=== PATIENT | female | born 2000 | race Caucasian/White ===

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

== ENCOUNTER 2020-07-18 08:59 | Emergency (ER) | payer MEDICAID, SELFPAY ==
[2020-07-18 09:00] VITALS: BP 152/82; PULSE 109; RESP 16; TEMP 35.7; O2SAT 99; BMI 33.3
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
--- NOTE | 2020-07-18 09:20 | DCINST.ED_ITS ---
ED Disposition - Plan for ED Patient: Instructions: ED Neck Pain Prescriptions: cycloBENZAPRine HCl [Flexeril] 10 mg PO TID PRN #20 tab PRN Reason: Muscle Spasm Transmission Status: Pending to [facility] #30 Naproxen [Naprosyn] 500 mg PO BID PRN #20 tab Transmission Status: Pending to [facility] #30 Referrals: Quita Lee MD [Primary Care Provider] - Carmelo Alejo MD [STAFF PHYSICIAN] - 5-7 Days
== END 2020-07-18 09:37 | disposition home or self-care (01) ==
LOC: ED 09:28
PROVIDERS: Emergency Provider Emergency Medicine; PCP Pediatrics
DX: M43.6 Torticollis (principal)
CPT/HCPCS: 99282

== ENCOUNTER 2021-06-26 03:39 | Emergency (ER) | payer OTHER, MEDICAID, SELFPAY ==
[2021-06-26 03:40] VITALS: BP 117/64; PULSE 91; RESP 16; TEMP 35.5; O2SAT 100; BMI 30.4
--- NOTE | 2021-06-26 04:07 | CT_ITS ---
STUDY: CT ABDOMEN AND PELVIS WITH CONTRAST REASON FOR EXAM: Female, 21 years old. abd pain RADIATION DOSAGE (If Supplied By Facility): CTDIvol = ( 12.87 ) mGy, DLP = ( 753.24 ) mGycm TECHNIQUE: Transaxial images were obtained from the dome of the diaphragm to the symphysis pubis without oral contrast. IV 100mL Isovue-300 was administered. Sagittal and coronal images were reconstructed. Individualized dose optimization techniques were used for this CT. COMPARISON: None. FINDINGS: The visualized lung bases are unremarkable. The visualized portions of the heart are within normal limits. Normal liver. Normal gallbladder and extrahepatic biliary system. Normal spleen. Normal pancreas. Normal bilateral adrenal glands. Normal right kidney. Normal left kidney. Normal visualized stomach. Normal small intestine. Normal colon. The appendix is visualized and appears normal. Normal abdominal aorta. Normal inferior vena cava. Normal retroperitoneum. Normal urinary bladder. Normal abdominal wall. Normal osseous structures. CT/Abdomen/Pelvis W IV Cont ONLY IMPRESSION: Negative enhanced CT of the abdomen and pelvis for acute abnormality. Electronically Signed: Romeo Melvin MD at 5:37 EST ,
[2021-06-26 04:14] LABS: Absolute Lymphocyte Count 2.23 X10^3/uL (0.83-4.51); Basophil# 0.05 X10^3/uL; Basophil% 0.6 % (0-1); Eosinophil# 0.12 X10^3/uL; Eosinophils% 1.5 % (0-5); Hematocrit 42.5 % (37-47); Hemoglobin 14.6 g/dL (12.0-15.0); Lymphocyte # 2.23 X10^3/ul (0.83-4.51); Lymphocyte % 27.3 % (19-41); Mean Corp Hgb Conc 34.4 g/dL (32-36); Mean Corpuscular Hgb 32.2 pg (27.0-32.0); Mean Corpuscular Volume 93.8 fL (81-99); Mean Platelet Vol. 10.5 fl (6.2-12.0); Monocyte# 0.72 X10^3/uL; Monocyte% 8.8 % (0-10); NRBC Flagged by Analyzer 0 % (0-5); Neutrophil # 5.03 X10^3/uL (2.7-7.7); Neutrophil % 61.4 % (47-70); Platelet Count 282 K/mm3 (150-450); RBC Distribution Width SD 41.6 fl (35.1-43.9); Red Blood Count 4.53 M/mm3 (4.2-5.4); White Blood Count 8.2 K/mm3 (4.4-11.0)
[2021-06-26] MEDS: Ketorolac 30 MG/ML Syringe IV (04:22)
[2021-06-26] MEDS: 0.9% Normal Saline 1,000 ML 999 ML IV (04:22)
[2021-06-26 04:26] LABS: AST(SGOT) 20 U/L (15-37); Alanine Aminotransfer ALT/SGPT 21 U/L (13-56); Albumin, Serum 3.8 g/dL (3.2-5.0); Alkaline Phosphatase 70 U/L (45-117); Anion Gap 5 (5-15); BUN 14 mg/dL (7-18); Bilirubin, Direct 0.07 mg/dL (0.00-0.30); Calcium,Total 8.8 mg/dL (8.5-10.1); Chloride 107 mmol/L (98-107); Creatinine, Serum 0.78 mg/dL (0.55-1.02); EST Glomerular Filtration Rate 99 mL/min (>60); Est Glom Filt Rate - Afr Amer 120 mL/min (>60); Estimated Creatinine Clearance 123.02 ml/min; Globulin 3.6 g/dL (2.2-4.2); Glucose 97 mg/dL (74-106); Lipase 49 U/L (73-393); Protein, Total 7.4 g/dL (6.4-8.2); Sodium Level 139 mmol/L (136-145)
[2021-06-26 04:29] LABS: Mucous, Urine 0 SEEN /hpf (<or=2+); Red Blood Cells-Urine 0 SEEN /hpf (0-5)
[2021-06-26 04:34] LABS: Color, Urine Yellow (Yellow); Glucose, Dipstick Normal (Normal); Internal QC Validated? YES +Cl - CLEAR BKGD; Ketone-Dipstick 5 mg/dl (Negative); Leukocyte Esterase-Dipstick 25 /ul (Negative); Nitrite-Dipstick Negative (Negative); Occult Blood-Urine Negative /ul (Negative); Protein-Dipstick 15 mg/dl (Negative); Urine Bilirubin Dipstick Negative (Negative); Urine Clarity Clear (Clear); Urine Urobilinogen Normal (Normal)
[2021-06-26 04:35] LABS: Pregnancy, Urine Negative Negative
--- NOTE | 2021-06-26 04:38 | EX.ED.DYSGE1 ---
HPI History of Present Illness Chief Complaint: Abd Pain Narrative Narrative: Patient is a 21-year-old female who states for the past 10 days he has had constant left-sided dull achy abdominal pain. She states the pain will wax and wane in severity but is always present. She states she has had urinary frequency without dysuria. She denies any vomiting or loose stool/diarrhea or constipation associated with this. She denies any fevers chills injury or excessive activity prior to the pain beginning. She states that she has an IUD in place which has been there for approximately a year and a half and she has had no vaginal discharge or bleeding and is not concerned in . She states that she has had to leave work 3 times secondary to the pain and therefore presents for evaluation [facility] Medical History no medical history Home Medications cephalexin 500 mg PO TID 7 Days #21 cap 06/26/21 [Rx Last Taken Unknown] phenazopyridine [Pyridium] 200 mg PO TID 2 Days #6 tab 06/26/21 [Rx Last Taken Unknown] Allergy/AdvReac Type Severity Reaction Status Date / Time No Known Allergies Allergy Verified 06/26/21 03:43 Social History Smoking Status: Never smoker ROS [facility] ED Constitutional Constitutional ED: Denies chills or fever(s) ENT ENT ED: Denies sore throat Cardiovascular Cardiovascular: Denies chest pain Respiratory/Chest Respiratory/Chest: Denies cough or dyspnea Gastrointestinal Gastrointestinal: Reports abdominal pain; Denies constipation, diarrhea, nausea or vomiting Genitourinary Genitourinary ED: Reports urinary frequency; Denies dysuria or hematuria Musculoskeletal Musculoskeletal: Denies back pain or myalgias Integumentary Denies rash Neurologic Neurologic: Denies headache(s) Hematologic/Lymphatic Hematologic/Lymphatic: Denies easy bleeding or easy bruising EXAM Physical Exam Const Vital Signs: 06/26/21 03:40 Temperature 96 F L Temperature Source Temporal Pulse Rate 91 Respiratory Rate 16 Blood Pressure 117/64 Blood Pressure Mean 81 Pulse Ox 100 Oxygen Delivery Method Room Air Positive well nourished, well developed and obese General Appearance ED: well developed Nutritional Appearance: obese HEENT Reports moist mucous membranes Eyes PERRL and EOMs intact bilaterally Neck supple Resp normal respiratory effort and clear to auscultation bilaterally Cardio regular rate and regular rhythm GI non-distended and no masses GI Narrative: There is mild pain with palpation in the left-sided abdomen diffusely without voluntary guarding or rigidity. No pulsatile mass or fluid wave noted Auscultation: normoactive bowel sounds Palpation: soft Back/Spine no CVA tenderness Extremity normal to inspection Neuro oriented x3 and CN's II-XII intact bilaterally Sensorium / Orientation: alert Motor Exam: strength 5/5 throughout Psych mental status grossly normal Skin no rashes or lesions noted MDM MDM MDM Narrative Medical decision making narrative: Patient presented to the ER with stable vitals and a soft nonsurgical abdomen. However as she complained of persistent pain for the past 10 days I did feel there is need to do basic laboratory studies and a CT scan. Her labs showed a weakly infected urine with +1 bacteria and 25 leukoesterase and no contamination. Therefore the urine be sent for culture and she will be started on Pyridium and Keflex. The CT scan did not show any type of underlying abdominal pathology such as a mass or tubo-ovarian abscess or kidney stone or ovarian cyst. On reevaluation she is resting comfortably and her abdomen remains soft and nonsurgical. Therefore at this time patient can be safely discharged home and if symptoms persist she can follow-up with her family doctor to discuss further outpatient testing to elicit the cause of her abdominal pain Lab Data Attestation: I reviewed the patient's lab results. Labs: Laboratory Results - last 24 hr 06/26/21 06/26/21 06/26/21 03:46 03:46 04:24 WBC 8.2 RBC 4.53 Hgb 14.6 Hct 42.5 MCV 93.8 MCH 32.2 H MCHC 34.4 RDW Std Deviation 41.6 RDW Coeff of Radha 12.0 Plt Count 282 MPV 10.5 Immature Gran % (Auto) 0.400 Neut % (Auto) 61.4 Lymph % (Auto) 27.3 [place] % (Auto) 8.8 Eos % (Auto) 1.5 Baso % (Auto) 0.6 Absolute Neuts (auto) 5.0 Absolute Lymphs (auto) 2.23 Nucleated RBC % 0 Sodium 139 Potassium 4.0 Chloride 107 Carbon Dioxide 27.0 Anion Gap 5 BUN 14 Creatinine 0.78 Estim Creat Clear Calc 123.02 Est GFR (MDRD) Af Amer 120 Est GFR (MDRD) Non-Af 99 BUN/Creatinine Ratio 18.0 Glucose 97 Calcium 8.8 Total Bilirubin 0.20 Direct Bilirubin 0.07 AST 20 ALT 21 Alkaline Phosphatase 70 Total Protein 7.4 Albumin 3.8 Globulin 3.6 Lipase 49 L Urine Color Yellow Urine Clarity Clear Urine pH 6.0 Ur Specific [place] 1.020 Urine Protein 15 H Urine Glucose (UA) Normal Urine Ketones 5 H Urine Occult Blood Negative Urine Nitrite Negative Urine Bilirubin Negative Urine Urobilinogen Normal Ur Leukocyte Esterase 25 H Urine RBC 0 SEEN Urine WBC 0-5 SEEN Ur Squamous Epith Cells 0-5 SEEN Urine Bacteria 1+ Urine Mucus 0 SEEN Urine Test Negative Radiography Diagnostic Testing: Clinical Impression(s) from Imaging Studies Abdomen/Pelvis CT 06/26/21 04:07 IMPRESSION: Negative enhanced CT of the abdomen and pelvis for acute abnormality. Electronically Signed: Romeo Melvin MD at 5:37 EST , Discharge Plan Triage Chief Complaint: Abd Pain ED Provider: Jeff Villafuerte Dx/Rx/DC Orders Clinical Impression: Urinary tract infection Instructions: Urinary Tract Infections in Women, ED Abdominal Pain Unkn Cause Fem Prescriptions: New cephalexin 500 mg capsule 500 mg PO TID 7 Days Qty: 21 RF: 0 phenazopyridine [Pyridium] 200 mg tablet 200 mg PO TID 2 Days Qty: 6 RF: 0 Primary Care Provider: Ora Vences Referrals: Ora Vences NP-C [Primary Care Provider] - Activity Restrictions/Additional Instructions: If pain persist despite taking your antibiotic please follow-up with your family doctor to discuss further outpatient testing and return to the ER should you have any further concerns Disposition Disposition: Home, Self Care
[2021-06-26 04:40] LABS: Bacteria 1+ /hpf (None Seen); Squamous Epithelial Cells - UA 0-5 SEEN /hpf (5-10); White Blood Cells 0-5 SEEN /hpf (0-5)
[2021-06-26] MEDS: Phenazopyridine 95 MG Tablet 190 MG PO (05:52)
[2021-06-26] MEDS: Cephalexin 250 MG Capsule 500 MG PO (05:52)
[2021-06-26 05:53] VITALS: PULSE 78; RESP 16; O2SAT 98
== END 2021-06-26 05:54 | disposition home or self-care (01) ==
PROVIDERS: Emergency Provider Emergency Medicine; PCP Nurse Practitioner Family; Visit Provider Emergency Medicine
DX: N39.0 Urinary tract infection, site not specified (principal)
CPT/HCPCS: 74177; 80048; 80076; 81001; 81025; 83690; 85025; 87086; 87088; 99284; J7030; Q9967

== ENCOUNTER 2022-02-28 07:57 | Emergency (ER) | payer OTHER, MEDICAID, SELFPAY ==
[2022-02-28 07:58] VITALS: BP 130/88; PULSE 96; RESP 18; TEMP 36.6; O2SAT 100; BMI 31.2
--- NOTE | 2022-02-28 08:42 | EDS_ITS ---
HPI HPI - URI History of Present Illness Chief Complaint: Cough Narrative Narrative: 22-year-old female presenting with mild cough and losing her voice. She states has been present for couple of days. States initially she had a little bit of nasal congestion and irrigate her sinuses with some saline and the next morning woke up with her voice hoarse. She states is not exquisitely painful. She does not a fever, chills, body aches. She states she feels otherwise well. She was at work today and expressed concern that she was coughing. ROS ROS ED Constitutional Constitutional ED: Denies chills or fever(s) Eyes Eyes: Denies change in vision or diplopia ENT ENT ED: Reports other Cardiovascular Cardiovascular: Denies chest pain or palpitations Respiratory/Chest Respiratory/Chest: Reports cough; Denies dyspnea or dyspnea on exertion Gastrointestinal Gastrointestinal: Denies abdominal pain or constipation Genitourinary Genitourinary ED: Denies dysuria or hematuria Musculoskeletal Musculoskeletal: Denies arthralgias or myalgias Integumentary Denies Abrasions or rash Neurologic Neurologic: Denies headache(s) or paresthesias Psychiatric Psychiatric: Denies anxiety or depression PFSH PFSH Medical History no medical history Home Medications NK 02/28/22 [History Last Taken Unknown] Allergy/AdvReac Type Severity Reaction Status Date / Time No Known Allergies Allergy Verified 02/28/22 08:00 Social History Smoking Status: Never smoker EXAM Physical Exam Const Vital Signs: 02/28/22 07:58 02/28/22 08:04 Temperature 97.9 F Temperature Source Temporal Pulse Rate 96 Respiratory Rate 18 Respiratory Effort Non-Labored Short of Breath Blood Pressure 130/88 H Blood Pressure Mean 102 Pulse Ox 100 Oxygen Delivery Method Room Air Positive well nourished General Appearance ED: NAD; Negative for pallor HEENT Reports normocephalic, head/scalp atraumatic and moist mucous membranes normocephalic Nose: external nose normal, nares normal and nasal mucous membranes and turbinates normal External Ear: external ears normal Mouth ED: Yes oral and palatal mucosa normal, Yes lips normal, Yes tongue normal, Yes salivary gland normal and Yes moist mucous membranes normal Mouth: oral and palatal mucosa normal, lips normal, tongue normal and salivary gland normal Throat: posterior oropharynx normal Eyes PERRL Neck no lymphadenopathy and supple Neck Narrative: No stridor Cardio Rate: regular rate Rhythm: regular rhythm Neuro oriented x3 and CN's II-XII intact bilaterally Sensorium / Orientation: alert Psych mental status grossly normal Skin General Skin Exam: Negative for jaundice or pallor MDM MDM MDM Narrative Medical decision making narrative: Patient with hoarse voice after a couple of days of coughing. She has not had any fever, chills, body aches. She feels well. She does not like to tested for COVID and the viral sources. She states she wants to go back to work. I will give her a dose of Decadron here orally and she will be discharged home. She states she does not want a work note. Impression: 1. Laryngitis 2. Cough Lab Data Attestation: I reviewed the patient's lab results. Discharge Plan Triage Chief Complaint: Cough ED Provider: Cristian Vera Dx/Rx/DC Orders Instructions: ED Laryngitis Prescriptions: No Action NK Primary Care Provider: Ora Vences Referrals: Ora Vences [employer] [Primary Care Provider] - Disposition Disposition: Home, Self Care
[2022-02-28] MEDS: dexAMETHasone 10 MG/ML Vial PO.IVFORM (09:29)
== END 2022-02-28 09:31 | disposition home or self-care (01) ==
PROVIDERS: Emergency Provider Student in an Organized Health Care Education/Training Program; PCP Nurse Practitioner Family; Visit Provider Student in an Organized Health Care Education/Training Program
DX: J04.0 Acute laryngitis (principal); R05.9 Cough, unspecified
CPT/HCPCS: 99283

== ENCOUNTER 2022-03-03 13:18 | Emergency (ER) | payer OTHER, MEDICAID, SELFPAY ==
[2022-03-03 13:19] VITALS: BP 147/70; PULSE 116; RESP 16; TEMP 36.1; O2SAT 97; BMI 31.2
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
== END 2022-03-03 15:35 | disposition home or self-care (01) ==
PROVIDERS: Emergency Provider Emergency Medicine; PCP Nurse Practitioner Family; Visit Provider Emergency Medicine
DX: F41.9 Anxiety disorder, unspecified (principal); F32.A Depression, unspecified
CPT/HCPCS: 99282

== ENCOUNTER 2022-06-17 07:40 | Emergency (ER) | payer BC, MEDICAID, SELFPAY ==
[2022-06-17 07:41] VITALS: BP 120/74; PULSE 90; RESP 16; TEMP 36.6; O2SAT 100; BMI 33.7
--- NOTE | 2022-06-17 08:23 | RAD_ITS ---
STUDY: X-RAY CHEST REASON FOR EXAM: Female, 22 years old. Cough, diarrhea, R lower CP TECHNIQUE: PA and lateral views of the chest. COMPARISON: Comparison is made with prior study dated 05/13/2019. FINDINGS: The lungs are clear and expanded. There is no demonstrated pleural abnormality. Normal size heart. Normal mediastinum and suma. Normal visualized pulmonary arteries. Normal visualized aortic arch and descending thoracic aorta. Normal visualized thoracic spine. Normal visualized ribs, clavicles, and shoulders. There is no demonstrated abnormality of the visualized soft tissue structures of the upper abdomen. RAD/Chest PA and Lateral IMPRESSION: Normal x-ray examination of the chest. Electronically Signed: Gilles Forte MD at 8:58 EST ,
--- NOTE | 2022-06-17 08:23 | EX.ED.DYSGE1 ---
HPI History of Present Illness Chief Complaint: Chest Other Informant: patient Onset/Context/Timing Onset: Weeks (1) Context: Gradual Onset Timing: Continuous Quality: sore Location: R lower ribs Current Severity: Moderate Maximum Severity: Moderate Worsened by: moving, coughing Relieved by: ibuprofen partially Narrative Narrative: Patient started having right lower and lateral rib cage pain after cold symptoms started. The cold symptoms are improved, and her ribs are still sore and hurting especially when she moves or coughs. The cough is much better than it was she states. She is a little more congestion now, stating that its one symptom that got a little worse, and she has been having persistent diarrhea during this illness as well, watery nonbloody 5 or 6 times per day. She has no nausea, vomiting, or abdominal pain. No fevers or chills. No pains elsewhere. She states her main concern was that her cold was better but she is still having the soreness in the right ribs and diarrhea. PFSH PFSH Medical History no medical history no medical history Home Medications NK 02/28/22 [History Last Taken Unknown] Allergy/AdvReac Type Severity Reaction Status Date / Time No Known Allergies Allergy Verified 06/17/22 07:41 Social History Smoking Status: Never smoker ROS ROS ED Constitutional Constitutional ED: Denies chills or fever(s) ENT ENT ED: Reports nasal congestion, rhinorrhea and sore throat; Denies ear pain Cardiovascular Cardiovascular: Reports other Details: Right rib cage pain, see HPI ; Denies chest pain or palpitations Respiratory/Chest Respiratory/Chest: Reports cough; Denies dyspnea Gastrointestinal Gastrointestinal: Reports diarrhea; Denies abdominal pain, nausea or vomiting Genitourinary Genitourinary ED: Denies dysuria or hematuria Musculoskeletal Musculoskeletal: Denies myalgias or neck pain Integumentary Denies abscess or rash Neurologic Neurologic: Denies headache(s), paresthesias or weakness Psychiatric Psychiatric: Denies depression or suicidal thoughts Endocrine Endocrinology: Denies polydipsia or polyuria EXAM Physical Exam Const Vital Signs: 06/17/22 07:41 06/17/22 07:48 Temperature 97.8 F Temperature Source Temporal Pulse Rate 90 Respiratory Rate 16 Respiratory Effort Short of Breath Respiratory Depth Normal Respiratory Pattern Normal Blood Pressure 120/74 Blood Pressure Mean 89 Pulse Ox 100 Oxygen Delivery Method Room Air Room Air Positive well nourished, well developed and obese General Appearance ED: well developed and NAD Nutritional Appearance: obese HEENT Reports moist mucous membranes normocephalic and atraumatic Throat: Negative for posterior oropharynx abnormal Eyes PERRL and EOMs intact bilaterally Eyes Narrative: Posterior oropharynx clear. TMs normal bilaterally. No sinus tenderness. No nasal turbinate edema or purulent discharge. Neck no lymphadenopathy, supple and no meningeal signs Chest Wall inspection of chest normal Chest Narrative: Reproducible pain with light palpation along the right lower anterior and lateral rib cage. No tenderness below the costal margin. No sternal tenderness. No tenderness posterior to the anterior axillary line on the right. No subcutaneous emphysema or step-off or other abnormal palpation. Resp normal respiratory effort and clear to auscultation bilaterally Effort and Inspection: able to speak in complete sentences Cardio no murmurs Rate: regular rate Rhythm: regular rhythm GI normal to inspection, nondistended, normoactive bowel sounds and non-tender Inspection: Negative for abdominal distention Back/Spine no CVA tenderness Back/Spine Narrative: FROM Extremity normal to inspection General Extremety ED: Negative for edema or tenderness General Extremity: Negative for edema Neuro oriented x3, CN's II-XII intact bilaterally and no sensory deficits noted Sensorium / Orientation: alert Motor Exam: strength 5/5 throughout Psych mental status grossly normal Skin no rashes or lesions noted Lesions: no lesions Rashes: no rashes MDM MDM MDM Narrative Medical decision making narrative: I obtained a two-view chest x-ray, on my interpretation it is normal. There is no evidence of consolidation in the right base, nor are there any patchy abnormalities suspicious for Legionella infection. I reassured her, this is likely of viral illness and she has musculoskeletal right rib cage soreness due to the coughing, she confirms that this started while she was coughing a lot and now she is barely coughing at all. Her vital signs are normal, pulse ox 100, encouraged to continue drinking plenty of fluids and not try to start of the diarrhea, taking Imodium as needed, she does not require any medications or prescriptions for abdominal pain or nausea/vomiting. I would continue taking ibuprofen as needed for the rib pain and if it is limiting her movement/activity, to use topical such as a lidocaine patch as well. We discussed that. Discharge Plan Triage Chief Complaint: Chest Other ED Provider: Jacky Willis Dx/Rx/DC Orders Clinical Impression: Viral URI with cough, Acute diarrhea, Strain of chest wall Instructions: ED Diarrhea, Unknown Cause, ED Chest Wall Strain Prescriptions: No Action NK Primary Care Provider: Ora Vences Referrals: Ora Vences, [employer]NAG[employer]-C [Primary Care Provider] - 3-5 Days if not improving Activity Restrictions/Additional Instructions: Imodium as needed for diarrhea. Drink plenty of fluids and try to stay hydrated. Ibuprofen or Aleve as needed for the rib/muscle discomfort in your chest wall/ribs, may also use topicals as needed such as Biofreeze and/or lidocaine patch. Disposition Disposition: Home, Self Care
== END 2022-06-17 08:42 | disposition home or self-care (01) ==
PROVIDERS: Emergency Provider Emergency Medicine; PCP Nurse Practitioner Family; Visit Provider Emergency Medicine
DX: J06.9 Acute upper respiratory infection, unspecified (principal); S29.011A Strain of muscle and tendon of front wall of thorax, initial encounter; R19.7 Diarrhea, unspecified; R05.9 Cough, unspecified; E66.9 Obesity, unspecified
CPT/HCPCS: 71046; 99283

== ENCOUNTER 2023-06-04 04:21 | Emergency (ER) | payer BC, SELFPAY ==
[2023-06-04 04:22] VITALS: BP 133/75; PULSE 109; RESP 16; TEMP 36.3; O2SAT 98; BMI 36.7
[2023-06-04 04:43] LABS: Absolute Lymphocyte Count 0.79 X10^3/uL (0.83-4.51); Absolute Neutrophil Count 11.9 X10^3/uL (2.0-7.7); Basophil# 0.05 X10^3/uL; Basophil% 0.4 % (0-1); Eosinophil# 0.08 X10^3/uL; Eosinophils% 0.6 % (0-5); Hematocrit 41.9 % (37-47); Lymphocyte # 0.79 X10^3/ul (0.83-4.51); Lymphocyte % 5.9 % (19-41); Mean Corp Hgb Conc 33.4 g/dL (32-36); Mean Corpuscular Volume 92.9 fL (81-99); Mean Platelet Vol. 10.1 fl (6.2-12.0); Monocyte# 0.53 X10^3/uL; Monocyte% 3.9 % (0-10); NRBC Flagged by Analyzer 0 % (0-5); Neutrophil % 88.7 % (47-70); Platelet Count 299 K/mm3 (150-450); RBC Distribution Width CV 11.9 % (11.6-14.6); RBC Distribution Width SD 40.8 fl (35.1-43.9); Red Blood Count 4.51 M/mm3 (4.2-5.4); White Blood Count 13.4 K/mm3 (4.4-11.0)
[2023-06-04] MEDS: 0.9% Normal Saline (1000mL) 1,000 ML 1000 ML IV (04:44)
[2023-06-04] MEDS: Ondansetron 4 MG/2 ML Vial IV (04:45)
[2023-06-04 04:53] LABS: Mucous, Urine 0 SEEN /hpf (<or=2+)
[2023-06-04 04:54] LABS: Color, Urine Yellow (Yellow); Glucose, Dipstick Normal (Normal); Ketone-Dipstick Negative (Negative); Leukocyte Esterase-Dipstick 100 /ul (Negative); Nitrite-Dipstick Negative (Negative); Occult Blood-Urine Negative /ul (Negative); Protein-Dipstick 15 mg/dl (Negative); Urine Bilirubin Dipstick Negative (Negative); Urine Clarity Clear (Clear); Urine Urobilinogen Normal (Normal)
[2023-06-04 05:08] LABS: ALB/GLOB Ratio 0.8 RATIO (0.9-2.4); AST(SGOT) 29 U/L (15-37); Alanine Aminotransfer ALT/SGPT 35 U/L (13-56); Albumin, Serum 3.3 g/dL (3.2-5.0); Alkaline Phosphatase 68 U/L (45-117); Anion Gap 6 (5-15); BUN 10 mg/dL (7-18); BUN/Creat Ratio 13.3 RATIO (10-20); Chloride 105 mmol/L (98-107); Creatinine, Serum 0.75 mg/dL (0.55-1.02); EST Glomerular Filtration Rate 101 mL/min (>60); Est Glom Filt Rate - Afr Amer 122 mL/min (>60); Estimated Creatinine Clearance 113.12 ml/min; Glucose 107 mg/dL (74-106); Lipase 21 U/L (13-75); Potassium 3.9 mmol/L (3.5-5.1); Protein, Total 7.3 g/dL (6.4-8.2); Sodium Level 134 mmol/L (136-145)
[2023-06-04 05:09] LABS: Bacteria 1+ /hpf (None Seen); Red Blood Cells-Urine 0-5 SEEN /hpf (0-5); Squamous Epithelial Cells - UA 5-10 SEEN /hpf (5-10); White Blood Cells 5-10 SEEN /hpf (0-5)
--- NOTE | 2023-06-04 05:24 | EX.ED.DYSGE1 ---
HPI History of Present Illness Chief Complaint: Nausea/Vomiting Informant: patient Narrative Narrative: Patient is a 23-year-old female G2, P1 currently 8 weeks by positive home test presenting for nausea, vomiting and lightheadedness. Patient's last menstrual period was April 06. She notes that she had when she is has been having some worsening nausea, vomiting. She states she still able to drink fluids. She denies any abdominal pain and just has normal cramping that she associates with early /round ligament changes. She notes that tonight her symptoms became worse and she has been vomiting pretty continuously since 8 PM. She also gets intermittent chills. Denies any dysuria, vaginal bleeding or abnormal vaginal discharge. Denies any chest pain, shortness breath difficulty breathing. Was feeling lightheaded. Follows with [facility] [employer] but has not established for this yet. Denies any recent URI/flu symptoms. Denies any black or blood in her stool or vomit PFSH PFSH Medical History no medical history Home Medications NK 02/28/22 [History Last Taken Unknown] ondansetron 4 mg disintegrating tablet 4 mg PO Q8H PRN PRN Nausea #10 tabs 06/04/23 [Rx Last Taken Unknown] Allergy/AdvReac Type Severity Reaction Status Date / Time No Known Allergies Allergy Verified 06/04/23 04:25 Social History Smoking Status: Never smoker [facility] ED Constitutional Constitutional ED: Reports chills and other Details: lightheaded ; Denies fever(s) Eyes Eyes: Denies change in vision ENT ENT ED: Denies rhinorrhea or sore throat Cardiovascular Cardiovascular: Denies chest pain Respiratory/Chest Respiratory/Chest: Denies cough Gastrointestinal Gastrointestinal: Reports nausea and vomiting; Denies abdominal pain, constipation or diarrhea Genitourinary Genitourinary ED: Reports LMP (females 10-50) Details: Comment: (April 06); Denies dysuria or urinary frequency Musculoskeletal Musculoskeletal: Denies arthralgias, back pain or myalgias Integumentary Denies rash Neurologic Neurologic: Denies headache(s) or weakness EXAM Physical Exam Const Vital Signs: 06/04/23 04:22 06/04/23 06:21 Temperature 97.4 F L Temperature Source Temporal Pulse Rate 109 H 81 Respiratory Rate 16 16 Blood Pressure 133/75 H 124/87 H Blood Pressure Mean 94 99 Pulse Ox 98 99 Oxygen Delivery Method Room Air Positive well nourished and well developed General Appearance ED: well developed, NAD and pallor HEENT Reports dry mucous membranes Mouth ED: Yes dry mucous membranes Mouth: dry mucous membranes Eyes PERRL and EOMs intact bilaterally Neck supple and no JVD Chest Wall inspection of chest normal and palpation of chest normal Resp normal respiratory effort and clear to auscultation bilaterally Cardio regular rate, regular rhythm and no murmurs GI normal to inspection, nondistended, normoactive bowel sounds and non-tender Extremity normal to inspection General Extremety ED: Negative for edema General Extremity: Negative for edema Neuro oriented x3 Sensorium / Orientation: alert Motor Exam: Negative for general weakness Psych mental status grossly normal Skin no rashes or lesions noted and no wounds General Skin Exam: pallor MDM MDM MDM Narrative Medical decision making narrative: Patient valuated for nausea, vomiting lightheadedness and early . Is not having abdominal pain. Has not had a confirmed IUP at this point. Will give IV fluids and Zofran for symptom control. Upon arrival patient is mildly tachycardic. Does have mild leukocytosis of 13.4 which is nonspecific. CMP largely normal. Urinalysis shows negative ketones and is most consistent with contamination but will send for culture given that she is . Bedside ultrasound performed by myself shows a single intrauterine gestation with visualized cardiac activity. [place]-rump rump length measured by myself is consistent with gestational dates of 7 weeks 1 day. This is consistent with early . I do not see any free fluid in the abdomen. Patient will receive her IV fluids and be discharged home with a prescription for Zofran. Will follow-up outpatient with [employer]. Given return precautions. Patient agreeable with plan of care. Discharged home in stable improved condition. Chart review does show that patient is Rh+. She does not have any vaginal bleeding so regardless would not require RhoGAM at this time. Lab Data Attestation: I reviewed the patient's lab results. Labs: Laboratory Results - last 24 hr 06/04/23 06/04/23 04:32 04:45 WBC 13.4 H RBC 4.51 Hgb 14.0 Hct 41.9 MCV 92.9 MCH 31.0 MCHC 33.4 RDW Std Deviation 40.8 RDW Coeff of Radha 11.9 Plt Count 299 MPV 10.1 Immature Gran % (Auto) 0.500 Neut % (Auto) 88.7 H Lymph % (Auto) 5.9 L [place] % (Auto) 3.9 Eos % (Auto) 0.6 Baso % (Auto) 0.4 Absolute Neuts (auto) 11.9 H Absolute Lymphs (auto) 0.79 L Nucleated RBC % 0 Sodium 134 L Potassium 3.9 Chloride 105 Carbon Dioxide 23.0 Anion Gap 6 BUN 10 Creatinine 0.75 Estim Creat Clear Calc 113.12 Est GFR (MDRD) Af Amer 122 Est GFR (MDRD) Non-Af 101 BUN/Creatinine Ratio 13.3 Glucose 107 H Calcium 9.0 Total Bilirubin 0.40 AST 29 ALT 35 Alkaline Phosphatase 68 Total Protein 7.3 Albumin 3.3 Globulin 4.0 Albumin/Globulin Ratio 0.8 L Lipase 21 HCG, Quant 68391 H Urine Color Yellow Urine Clarity Clear Urine pH 6.0 Ur Specific [place] 1.020 Urine Protein 15 H Urine Glucose (UA) Normal Urine Ketones Negative Urine Occult Blood Negative Urine Nitrite Negative Urine Bilirubin Negative Urine Urobilinogen Normal Ur Leukocyte Esterase 100 H Urine RBC 0-5 SEEN Urine WBC 5-10 SEEN Ur Squamous Epith Cells 5-10 SEEN Urine Bacteria 1+ Urine Mucus 0 SEEN Discharge Plan Triage Chief Complaint: Nausea/Vomiting ED Provider: Siobhan Grimes Dx/Rx/DC Orders Clinical Impression: Intermittent lightheadedness, First trimester , Nausea & vomiting Instructions: 1st Trimester, ED Vomiting (Adult) Prescriptions: New ondansetron 4 mg tablet,disintegrating 4 mg PO Q8H PRN PRN (Reason: Nausea) Qty: 10 0RF No Action NK Primary Care Provider: Ora Vences Referrals: Ora Vences, SARAY-C [Primary Care Provider] - Shirin Carroll DO [Med Staff - Active Staff] - As Needed Activity Restrictions/Additional Instructions: Your urine will be sent for culture as is not clear if you have an early UTI or it was just contaminated. Make sure you are drinking plenty of fluids and eating small frequent snacks. Return to the ER if you have a progression or worsening of your symptoms. Disposition Disposition: Home, Self Care
[2023-06-04 05:32] LABS: hCG Titer Quant., Serum 72378 mIU/mL (1-3)
[2023-06-04 06:21] VITALS: BP 124/87; PULSE 81; RESP 16; O2SAT 99
[2023-06-04 07:26] VITALS: RESP 16
== END 2023-06-04 07:27 | disposition home or self-care (01) ==
PROVIDERS: Emergency Provider Emergency Medicine; PCP Nurse Practitioner Family; Visit Provider Emergency Medicine
DX: O21.0 Mild hyperemesis gravidarum (principal); O99.891 Other specified diseases and conditions complicating pregnancy; R42 Dizziness and giddiness; Z3A.01 Less than 8 weeks gestation of pregnancy
CPT/HCPCS: 80053; 81001; 83690; 84702; 85025; 87086; 87088; 96361; 96374; 99283; J7030; A4216; J2405

== ENCOUNTER 2024-01-20 07:13 | Inpatient (IN) | payer BC, SELFPAY ==
[2024-01-20] VITALS (62 sets, daily range): BP systolic 104–131; BP diastolic 51–74; PULSE 81–148; RESP 16–18; TEMP 36.5–37.1; O2SAT 96–100; BMI 36.7
[2024-01-20] MEDS: Penicillin G Pot 5,000,000 UNITS in 0.9% Normal Saline (100mL MB+) 100 ML 150 UNITS IV (07:40)
[2024-01-20] MEDS: Lactated Ringers 1,000 ML 50 ML IV (07:40)
[2024-01-20] MEDS: Oxytocin 15 Units/NS 250ml 15 UNITS/250 ML IV.SOLN 2 UNITS IV (08:04)
[2024-01-20 08:23] LABS: Absolute Lymphocyte Count 2.19 X10^3/uL (0.83-4.51); Basophil# 0.06 X10^3/uL; Basophil% 0.6 % (0-1); Eosinophil# 0.19 X10^3/uL; Eosinophils% 1.8 % (0-5); Hematocrit 36.2 % (37-47); Hemoglobin 10.7 g/dL (12.0-15.0); Lymphocyte # 2.19 X10^3/ul (0.83-4.51); Lymphocyte % 20.9 % (19-41); Mean Corp Hgb Conc 29.6 g/dL (32-36); Mean Corpuscular Hgb 23.7 pg (27.0-32.0); Mean Corpuscular Volume 80.3 fL (81-99); Mean Platelet Vol. 10.5 fl (6.2-12.0); Monocyte# 0.95 X10^3/uL; Monocyte% 9.1 % (0-10); NRBC Flagged by Analyzer 0 % (0-5); Neutrophil # 6.97 X10^3/uL (2.7-7.7); Neutrophil % 66.4 % (47-70); Platelet Count 377 K/mm3 (150-450); RBC Distribution Width CV 15.7 % (11.6-14.6); RBC Distribution Width SD 44.9 fl (35.1-43.9); Red Blood Count 4.51 M/mm3 (4.2-5.4); White Blood Count 10.5 K/mm3 (4.4-11.0)
[2024-01-20 08:57] LABS: Syphilis Antibodies Non-reactive
[2024-01-20] MEDS: 0.9% Normal Saline Single 100 ML IV.SOLN. INTRA-UTER (09:13)
[2024-01-20] MEDS: Penicillin G 3,000,000 Units 50 ML 100 UNITS IV ×2 (12:38→16:38)
--- NOTE | 2024-01-20 13:23 | PCM.HP.OB ---
HPI - General General Date of Admission: 01/20/24 Date of Service: 01/20/24 HPI Narrative TERRENCE ALVARADO, is a 23 F who presents for induction. Maternal Data Information EMILY Calculator Estimated Delivery Date Method Current WG Current Estimate 01/20/24 Manual 40w 0d PFSH PFSH Medical History Depression Anxiety Home Medications ?Medication ?Instructions ?Recorded ?Last Taken ?Type ondansetron 4 mg disintegrating 4 mg PO Q8H PRN PRN Nausea #10 tabs 06/04/23 Unknown Rx tablet aspirin 81 mg tablet,delayed 81 mg PO DAILY 01/20/24 01/19/24 History release (Adult Low Dose Aspirin) fluoxetine 20 mg capsule 20 mg PO DAILY anxiety 01/20/24 01/19/24 History vit no.95-ferrous 1 tab PO DAILY 01/20/24 01/19/24 History fumarate 28 mg-folic acid 800 mcg tablet () Allergy/AdvReac Type Severity Reaction Status Date / Time No Known Allergies Allergy Verified 01/20/24 07:47 Social History Smoking Status: Never smoker History Elective abortions Hx Para 1 Spontaneous abortions Hx # Term Pregnancies Ectopic pregnancies Hx # Pregnancies Multiple births # of living children NST FHR Rate Baby A Baseline: 140 Variability:: Moderate Accelerations:: 15 x 15 Decelerations:: None Uterine Activity:: Q2-3 minutes Vital Signs Vital Signs Vital Signs: 01/20/24 07:37 01/20/24 07:37 01/20/24 07:37 Temperature 98.8 F Temperature Source Temporal Pulse Rate Respiratory Rate 16 Blood Pressure BP Systolic BP Diastolic Pulse Ox 01/20/24 07:38 01/20/24 07:38 01/20/24 09:09 Temperature Temperature Source Temporal Pulse Rate 97 Respiratory Rate Blood Pressure 116/72 BP Systolic 116 BP Diastolic 72 Pulse Ox 01/20/24 09:09 01/20/24 09:09 01/20/24 09:10 Temperature 98.5 F Temperature Source Pulse Rate Respiratory Rate 18 Blood Pressure 117/64 BP Systolic 117 BP Diastolic 64 Pulse Ox 01/20/24 09:10 01/20/24 11:02 09/17/24 11:02 Temperature Temperature Source Pulse Rate 85 86 Respiratory Rate Blood Pressure 120/66 BP Systolic 120 BP Diastolic 66 Pulse Ox 01/20/24 11:02 01/20/24 11:02 01/20/24 11:02 Temperature 98.4 F Temperature Source Temporal Pulse Rate Respiratory Rate 16 Blood Pressure BP Systolic BP Diastolic Pulse Ox 01/20/24 11:03 01/20/24 11:03 01/20/24 12:44 Temperature Temperature Source Pulse Rate 91 Respiratory Rate Blood Pressure 120/72 BP Systolic 120 BP Diastolic 72 Pulse Ox 99 01/20/24 12:44 01/20/24 12:44 01/20/24 12:44 Temperature Temperature Source Temporal Pulse Rate 81 88 Respiratory Rate Blood Pressure BP Systolic BP Diastolic Pulse Ox 01/20/24 12:44 01/20/24 12:44 01/20/24 12:44 Temperature 97.8 F Temperature Source Pulse Rate Respiratory Rate 16 Blood Pressure BP Systolic BP Diastolic Pulse Ox 99 Weight Weight: 188 lb Body Mass Index (BMI) 36.7 Physical Exam Const alert, oriented x3 and no apparent distress GI soft to palpation, non-tender and non-distended Inspection: gravid Narrative: cvx 1cm on admission and intracervical davila placed. fole now out and AROM for clear fluid. cvx now 4/80/-2. IUPC and FSE placed. Labs Labs Labs: Blood Type A POSITIVE Antibody Screen NEGATIVE Hct 36.2 % (37-47) L Hgb 10.7 g/dL (12.0-15.0) L Syphilis Total Ab Non-reactive Rhogam given: No Miscellaneous Test Assessment & Plan (1) 40 weeks gestation of : COMMENT: @ 40 weeks (2) Maternal obesity syndrome in third trimester: PLAN: Plan Admit to L&D IOL - s/p intracervical davila & AROM. Continue pitocin. GBS positive - pcn per protocol. EFW - less than 4500g and patient with adequate pelvis. Pain - epidural as desired. Routine care.
[2024-01-20] MEDS: Lactated Ringers 1,000 ML 999 ML IV (17:50)
[2024-01-20] MEDS: fentaNYL-bupivacaine (epidural) 100 ML BAG EPIDURAL (19:07)
[2024-01-20] MEDS: Oxytocin 15 Units/NS 250ml 15 UNITS/250 ML IV.SOLN 334 UNITS IV (19:44)
--- NOTE | 2024-01-20 19:51 | EX.PCM.OBRPT ---
Maternal Data Information EMILY Calculator Estimated Delivery Date Method Current WG Current Estimate 01/20/24 Manual 40w 0d Vaginal Delivery Maternal Presentation Maternal Presentation: Medically Indicated Induction Type of Induction: Pitocin, North Bulb and Amniotomy Operative Information Date of Procedure: 01/20/24 Pre-Operative Diagnosis: (1) 40 weeks (2) Maternal obesity Post-Operative Diagnosis: Same Surgery / Procedure Performed: Spontaneous Vaginal Delivery Type of Anesthesia: Epidural Estimated Blood Loss: 100ml Findings Description of Procedure: Patient prepped & draped when C/C/+2. She pushed well to deliver the head. head gently guided to allow delivery of anterior and posterior shoulders. No excess traction placed on head. Body delivered and 3VC clamped & cut in delayed fashion. Placenta delivered with gentle traction and good uterine tone obtained. Presentation: MOOSE Amniotic Membrane Rupture Type: Spontaneous Amniotic Fluid Description: Clear Placental Delivery Description: Expressed Placenta Disposition: [facility] Specimen(s) Removed: Placenta Cord Vessel Description: 3 Vessels Cord Entanglement: None A Gender: Female (Scarlet) (1 minute): 8 (5 minute): 9 Delayed Cord Clamping: Yes Post Vaginal Delivery Medications Given After Delivery: IV Pitocin Episiotomy Description: None Laceration: None Complication Complications: None
[2024-01-20] MEDS: Oxytocin 15 Units/NS 250ml 15 UNITS/250 ML IV.SOLN 83 UNITS IV (20:15)
[2024-01-21 03:50] VITALS: BP 98/50; PULSE 75
[2024-01-21 03:55] VITALS: BP 98/50; PULSE 75; RESP 16; TEMP 36.6; O2SAT 99
[2024-01-21 07:59] VITALS: BP 119/67; PULSE 88; RESP 17; TEMP 36.7; O2SAT 98
--- NOTE | 2024-01-21 08:30 | PCM.PROGNOTE ---
Subjective Subjective patient seen at bedside, doing well. Patient reports good pain control. lochia mild. Objective Data Objective Data Vital Signs: Vital Signs Temp Pulse Resp BP Pulse Ox O2 Del Method 98.1 F 88 17 119/67 98 Room Air 01/21/24 07:59 01/21/24 07:59 01/21/24 07:59 01/21/24 07:59 01/21/24 07:59 01/21/24 07:59 Oxygen Delivery Method Room Air Weight: 85.275 kg Body Mass Index (BMI) 36.7 Intake & Output: Intake and Output for Last 24 Hours 01/19/24 01/20/24 01/21/24 23:59 23:59 23:59 Intake Total 2505.96 / 2505.96 Output Total 200 / 200 700 / 700 Balance 2305.96 / 2305.96 -700 / -700 Lab / Micro Data 01/20/24 07:35 Labs: Laboratory Results - last 24 hr 01/20/24 07:35: Syphilis Total Ab Non-reactive, Blood Type A POSITIVE, Antibody Screen NEGATIVE Physical Exam Narrative abd: fundus firm Const alert and oriented x3 General Appearance: cooperative HEENT normocephalic Neck General: normal visual inspection GI soft to palpation and non-distended GI Narrative: Fundus firm Extremity normal to inspection and no calf tenderness Skin no rashes or lesions noted Neuro oriented x3 and CN's II-XII intact bilaterally Psych mental status grossly normal Assessment & Plan Assessment/Plan (1) Vaginal delivery: (2) Maternal obesity syndrome in third trimester: PLAN: Plan PPD# 1 , Doing well Routine care pain mgmt ambulation planning dc home tomorrow
[2024-01-21] MEDS: FLUoxetine 20 MG Capsule PO (10:00)
[2024-01-21 11:53] VITALS: BP 108/63; PULSE 101; RESP 15; TEMP 36.9; O2SAT 98
[2024-01-21 15:06] VITALS: RESP 15; O2SAT 98
--- NOTE | 2024-01-21 15:19 | NURSING ---
Agree with student nurse charting that is used for education and learning purposes. reminded to report low temps to primary nurse.
[2024-01-21 18:40] VITALS: BP 113/91; PULSE 99; RESP 16; TEMP 36.4
--- NOTE | 2024-01-21 19:34 | DCINST_ITS ---
Discharge Instructions Diet Discharge Diet: No restrictions Activity May resume sexual activity in: 6-8 weeks Dressing / Incision Call your doctor if you observe: Fever of 101 or Higher, Inability to urinate, Using more than 1 pad per hour and Uncontrolled pain Follow Up Care Please Follow Up With: aYsmin Pineda MD When: 1-2 weeks post and again at 6 weeks post . [phone] Test Results: Test results from this visit will be discussed in further detail at your follow- up appointment, if applicable. Discharge Plan Admission Admit Date/Time: 01/20/24 07:13 Attending Provider: Malachi Archer Primary Care Provider: Ora Vences Discharge Orders/Prescriptions Prescriptions: New acetaminophen 500 mg Tablet 1,000 mg PO Q6H PRN PRN (Reason: Pain 1-10 Or Fever) Qty: 0 0RF ibuprofen 600 mg Tablet 600 mg PO Q6H PRN PRN (Reason: Pain Score 1-10) Qty: 0 0RF Continued PNV cmb#95-ferrous fumarate-FA [] 28 mg iron- 800 mcg tablet 1 tab PO DAILY fluoxetine 20 mg capsule 20 mg PO DAILY Discontinued ondansetron 4 mg tablet,disintegrating 4 mg PO Q8H PRN PRN (Reason: Nausea) Qty: 10 0RF aspirin [Adult Low Dose Aspirin] 81 mg tablet,delayed release (DR/EC) 81 mg PO DAILY Referrals / Follow Up: Ora Vences, [employer] STOMACH PREPARER-[facility] [Primary Care Provider] - Disposition Disposition (needs filled in before D/C Order can be placed): Home, Self Care
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
--- NOTE | 2024-01-26 13:24 | NURSING ---
Attempted f/up phone call, no ans, LVM.
--- NOTE | 2024-02-09 09:10 | NURSING ---
EDITED DELIVERY PROVIDER TO PULL TO LOG. TRAVIS DAVID RN
== END 2024-01-21 21:02 | disposition home or self-care (01) | DRG 807 ==
PROVIDERS: Admitting Provider Obstetrics & Gynecology; PCP Nurse Practitioner Family; Referring Provider Obstetrics & Gynecology; Visit Provider Obstetrics & Gynecology
DX: O99.214 Obesity complicating childbirth (principal); Z37.0 Single live birth; O99.344 Other mental disorders complicating childbirth; F32.A Depression, unspecified; F41.9 Anxiety disorder, unspecified; Z3A.40 40 weeks gestation of pregnancy; O99.820 Streptococcus B carrier state complicating pregnancy; Z79.82 Long term (current) use of aspirin
CPT/HCPCS: 59025; 59050; 85025; 86780; 86850; 86900; 86901; 99221; J7120; G0378